=== PATIENT | female | born 1980 | race Caucasian/White ===

== ENCOUNTER 2016-11-10 06:04 | Inpatient (IN) | payer BC, OTHER ==
[~2016-11-10 06:04] MED LIST: Buffered Lidocaine 0.9% SYRIN* 5 ML/SYR SYRINGE INTRADERM ONE; Sodium Citrate/Citric Acid* 15 ML UDC PO ONE
[2016-11-10] MEDS ORDERED: ceFAZolin 2 GM PREMIX (*) 50 ML IVPB ONE (07:03)
[2016-11-10] MEDS ORDERED: Morphine PF AMP (0.5MG/ML)* 5 MG/10 ML AMP ONE (07:35)
[2016-11-10] MEDS ORDERED: Dexamethasone IV* 4 MG/ML 1 ML (4 MG) ONE (07:36)
[2016-11-10] MEDS ORDERED: Ondansetron INJ* 2 MG/ML VIAL ONE (07:36)
[2016-11-10] MEDS ORDERED: OXYTOCIN* 10 UNITS/ML 1 ML VIAL ONE (07:36)
[2016-11-10] MEDS ORDERED: oxyCODONE TAB* 5 MG TAB PO PRN ×2 (07:45→08:36)
[2016-11-10] MEDS ORDERED: Acetaminophen IV 1GM/100ML * 100 ML IVPB ONE (07:45)
[2016-11-10] MEDS ORDERED: PROCHLORPERAZINE INJ 5 MG/ML 2 ML VIAL IV PRN (07:45)
[2016-11-10] MEDS ORDERED: fentaNYL* 50 MCG/ML 2 ML VIAL (100 MCG VIAL) IV PRN (07:45)
[2016-11-10] MEDS ORDERED: Scopolamine 1.5 mg* PATCH TRANSDERM PRN (08:36)
[2016-11-10] MEDS ORDERED: Ondansetron INJ* 2 MG/ML VIAL IV PRN (08:36)
[2016-11-10] MEDS ORDERED: Ketorolac INJ* 30 MG/ML 1 ML VIAL IV PRN (08:36)
[2016-11-10] MEDS ORDERED: Naloxone* 0.4 MG/ML 1 ML VIAL IV PRN (08:36)
[2016-11-10] MEDS ORDERED: Nalbuphine* 20 MG/ML 1 ML VIAL IV PRN (08:36)
[2016-11-10] MEDS ORDERED: Acetaminophen TAB* 325 MG PO SCH (09:00)
[2016-11-10] MEDS ORDERED: Ketorolac INJ* 30 MG/ML 1 ML VIAL IV SCH (09:45)
[2016-11-10] MEDS ORDERED: Dibucaine 1% 28.35 GM TUBE PR PRN (11:55)
[2016-11-10] MEDS ORDERED: Glycerin ADULT SUPP PR PRN (11:55)
[2016-11-10] MEDS ORDERED: Witch Hazel PAD* JAR TOPICAL PRN (11:55)
[2016-11-10] MEDS ORDERED: Acetaminophen TAB* 325 MG PO PRN (11:55)
[2016-11-10] MEDS: Simethicone TAB* 80 MG TAB.CHEW PO SCH ×3 (13:35→20:51)
[2016-11-10] MEDS: Docusate CAP* 100 MG PO SCH ×2 (13:35→20:51)
[2016-11-10] MEDS: Acetaminophen TAB* 325 MG PO SCH (18:17)
--- NOTE | 2016-11-11 01:45 | OP ---
DATE OF PROCEDURE: 11/10/16 - ROOM #116 DATE OF : 84 SURGEON: Kristine Jha MD HOLISTIC NUTRITIONIST: Roseann Brown CNM ANESTHESIOLOGIST: Shad Newell MD ANESTHESIA: Spinal PRE-OP DIAGNOSES: Intrauterine gestation at 39 and 6 weeks' gestational age, prior section, desires permanent sterilization. POST-OP DIAGNOSES: Intrauterine gestation at 39 and 6 weeks' gestational age, prior section, desires permanent sterilization. OPERATIVE PROCEDURE: Low transverse section, bilateral tubal ligation as well. ESTIMATED BLOOD LOSS: 800 mL. FLUIDS: Crystalloid. COMPLICATIONS: None. FINDINGS: Male infant. Weight 8 pounds 5 ounces. Apgars of 9 and 9. Normal- appearing placenta. Normal-appearing uterus, ovaries, and tubes. DESCRIPTION OF PROCEDURE: After informed consent was signed, the patient was taken to the operating room, where she was given spinal anesthesia that was found to be adequate. She was prepped and draped in the dorsal supine position with a leftward tilt. A Pfannenstiel skin incision was made with a scalpel and carried down to the underlying layer of fascia with the scalpel. The fascia was incised on either side of the midline and the fascial incision was extended laterally with sharp dissection with the Hugo scissors. The inferior edge of the fascial incision was grasped with Yosi clamps, tented up, and dissected down with sharp dissection with the Hugo scissors. Then, the superior edge of the fascial incision was also grasped with Yosi clamps, tented up, and dissected down with sharp dissection. The rectus muscles were already in the midline and the peritoneum was then entered bluntly and the peritoneal incision was extended laterally with a combination of sharp and blunt dissection. A bladder blade was then inserted and a transverse incision was made in the lower uterine segment with the scalpel. The incision was extended superiorly and inferiorly with blunt pressure. The infant's head was delivered with fundal pressure followed by the shoulders and the rest of the body. The cord was milked towards the baby, then clamped x2 and cut. The placenta delivered with fundal massage and gentle cord traction and appeared to be intact. The uterus was then exteriorized. The uterine incision was closed with 0 Vicryl in a running locked fashion with the second layer of suture imbricating the first. Attention was then turned to the tubes where the fimbriated end of the right tube was grasped with the Yessi clamp and clamped x2 , it was then suture ligated with 0 plain x2. The clamps removed and the end of the tube was removed with the Metzenbaum scissors. Good hemostasis was noted. Attention was then turned to the left tube, where the same procedure was done. Good hemostasis was noted also on the left side. The abdomen was then irrigated and the uterus was placed back into the abdominal cavity. Then, incision was inspected and good hemostasis was noted. Both tubal sites were also inspected and good hemostasis was noted. The peritoneum was then closed with 3-0 chromic in a running unlocked fashion. The fascia was closed with 0 Vicryl in a running unlocked fashion. The subcuticular layer was irrigated. Good hemostasis was noted and the skin was closed with 4-0 Monocryl in a running subcuticular fashion. The incision was cleaned. Mastisol and Steri- Strips were placed and the dressing was placed. The patient was then moved to the stretcher and taken to the recovery room in stable condition. Sponge, lap, and instrument counts were all correct. [id number]/[facility] #: [id number] MTDD
[2016-11-11] MEDS: Acetaminophen TAB* 325 MG PO SCH ×2 (02:23→11:42)
[2016-11-11 06:51] LABS: Hematocrit 29 % (35-47); Hemoglobin 9.9 g/dl (12.0-16.0); Mean Corpuscular HGB Conc 34 g/dl (31-36); Mean Corpuscular Hemoglobin 30 pg (27-31); Mean Corpuscular Volume 87 fL (80-97); Mean Platelet Volume 9 um3 (7.4-10.4); Red Blood Count 3.36 10^6/ul (4.0-5.4); Red Cell Distribution Width 15 % (10.5-15); White Blood Count 8.8 10^3/ul (3.5-10.8)
[2016-11-11] MEDS: Ibuprofen TAB* 600 MG PO PRN ×3 (07:39→19:58)
[2016-11-11] MEDS: Docusate CAP* 100 MG PO SCH ×3 (07:39→20:01)
[2016-11-11] MEDS: Simethicone TAB* 80 MG TAB.CHEW PO SCH ×4 (07:39→20:01)
[2016-11-11] MEDS: Ferrous Gluconate TAB* 324 MG TAB PO SCH ×2 (08:22→20:01)
[2016-11-11] MEDS: oxyCODONE/Acetamin 5/325 MG* TAB PO PRN ×3 (10:53→22:41)
[2016-11-11] MEDS ORDERED: Zolpidem TAB* 5 MG PO PRN (21:00)
[2016-11-12] MEDS: oxyCODONE/Acetamin 5/325 MG* TAB PO PRN ×5 (06:00→22:07)
[2016-11-12] MEDS: Ibuprofen TAB* 600 MG PO PRN ×3 (06:00→17:49)
[2016-11-12] MEDS: Docusate CAP* 100 MG PO SCH ×3 (08:25→22:06)
[2016-11-12] MEDS: Simethicone TAB* 80 MG TAB.CHEW PO SCH ×4 (08:25→22:06)
[2016-11-12] MEDS: Ferrous Gluconate TAB* 324 MG TAB PO SCH (10:50)
[2016-11-13] MEDS: Ibuprofen TAB* 600 MG PO PRN ×2 (01:46→08:42)
[2016-11-13] MEDS: Ferrous Gluconate TAB* 324 MG TAB PO SCH ×2 (01:47→10:18)
[2016-11-13] MEDS: oxyCODONE/Acetamin 5/325 MG* TAB PO PRN ×2 (03:57→08:42)
[2016-11-13] MEDS ORDERED: Scopolomine PATCH Remove* 1 NOTE MISC PATCH OFF PRN (08:30)
[2016-11-13] MEDS: Docusate CAP* 100 MG PO SCH (08:42)
[2016-11-13] MEDS: Simethicone TAB* 80 MG TAB.CHEW PO SCH (08:42)
[2016-11-13 08:56] VITALS: BP 123/82
== END 2016-11-13 10:24 | disposition home or self-care (01) | DRG 540 ==
LOC: MCHOB 06:04
PROVIDERS: ADMIT Obstetrics & Gynecology; ATTEND Obstetrics & Gynecology
PROC: 0UB70ZZ Excision of Bilateral Fallopian Tubes, Open Approach (ICD-10-PCS; 2016-11-10)
PROC: 10D00Z1 Extraction of Products of Conception, Low, Open Approach (ICD-10-PCS; principal; 2016-11-10 07:45)
DX: O34.211 Maternal care for low transverse scar from previous cesarean delivery (principal); O24.420 Gestational diabetes mellitus in childbirth, diet controlled; D64.9 Anemia, unspecified; O90.81 Anemia of the puerperium; Z3A.39 39 weeks gestation of pregnancy; Z37.0 Single live birth; Z30.2 Encounter for sterilization
CPT/HCPCS: 36415; 85025; 88302; A9270-GY; J0690; J1100; J1885; J2405; J2590

== ENCOUNTER 2017-12-26 10:28 | Emergency (ER) | payer OTHER ==
[2017-12-26 10:35] VITALS: BP 133/97
--- NOTE | 2017-12-26 10:39 | UC ---
Respiratory Complaint HPI - HPI Summary HPI Summary: 37 yo female presents with a fever around 101F for the last 3 days that resolves with ibuprofen. Yesterday she began to have a mild dry cough. She feels mildly fatigued, but no body aches. She is planning to run a half marathon this weekend and is nervous that she will not feel better in time. Denies chills, sinus symptoms, sore throat, SOB, chest pain, abdominal pain, n/v , or dysuria. - History of Current Complaint Chief Complaint: UCRespiratory Stated Complaint: FEVER COUGH Time Seen by Provider: 12/26/17 10:39 Hx Obtained From: Patient Hx Last Menstrual Period: 12/24/17 Onset/Duration: Gradual Onset Timing: Constant Severity Initially: Mild Severity Currently: Mild Pain Intensity: 2 Pain Scale Used: 0-10 Numeric Character: Cough: Nonproductive - Allergies/Home Medications Allergies/Adverse Reactions: Allergies Allergy/AdvReac Type Severity Reaction Status Date / Time No Known Allergies Allergy Verified 12/26/17 10:35 Home Medications: Home Medications Multivit with Iron,Hematinic [[place]] 1 tab PO DAILY 12/26/17 [History Confirmed 12/26/17] PMH/Surg Hx/FS Hx/Imm Hx - Additional Past Medical History Additional PMH: None - Surgical History Surgical History: Yes Surgery Procedure, Year, and Place: breast [id number] 2 csec - Family History Known Family History: Positive: None - Social History Occupation: Employed Full-time Lives: With Family Alcohol Use: None Substance Use Type: None Smoking Status (MU): Never Smoked Tobacco - Immunization History Most Recent Influenza Vaccination: 2016 Most Recent Tetanus Shot: 05/26/14 Most Recent Pneumonia Vaccination: unknown Review of Systems Constitutional: Fever Skin: Negative Eyes: Negative ENT: Negative Respiratory: Cough Cardiovascular: Negative Gastrointestinal: Negative Neurovascular: Negative Neurological: Negative Psychological: Negative All Other Systems Reviewed And Are Negative: Yes Physical Exam - Summary Physical Exam Summary: GENERAL: NAD. WDWN. No pain distress. SKIN: No rashes, sores, lesions, or open wounds. HEENT: Head: AT/NC Eyes: EOM intact. Conjunctiva clear without inflammation or discharge. Ears: Hearing grossly normal. TMs intact, no bulging, erythema, or edema. Nose: Nasal mucosa pink and moist. NTTP maxillary and frontal sinus. Throat: Posterior oropharynx without exudates, erythema, or tonsillar enlargement. Uvula midline. NECK: Supple. Nontender. No lymphadenopathy. CHEST: CTAB. No r/r/w. No accessory muscle use. Breathing comfortably and in no distress. CV: RRR. Without m/r/g. Pulses intact. Cap refill <2seconds NEURO: Alert. PSYCH: Age appropriate behavior. Triage Information Reviewed: Yes Vital Signs: Initial Vital Signs Temp 99.5 F 12/26/17 10:32 Pulse 100 12/26/17 10:32 Resp 20 12/26/17 10:32 BP 133/97 12/26/17 10:32 Pulse Ox 100 12/26/17 10:32 Vital Signs Reviewed: Yes UC Diagnostic Evaluation - Laboratory O2 Sat by Pulse Oximetry: 100 Respiratory Course/Dx - Course Course Of Treatment: Discussed possibility of viral infection and advised to continue with OTC medicine. Pt prefers to be on antibiotics, therefore will rx for amoxicillin and have her f/u if symptoms worsen or persist. - Differential Dx/Diagnosis Provider Diagnoses: Cough. Fever Discharge - Sign-Out/Discharge Documenting (check all that apply): Patient Departure All imaging exams completed and their final reports reviewed: No Studies - Discharge Plan Condition: Stable Disposition: HOME Prescriptions: Amoxicillin PO (*) [Amoxicillin 500 MG CAP*] 500 mg PO Q12H #14 cap Patient Education Materials: Fever in Adults (ED), Acute Bronchitis (ED) Referrals: Ricardo Jeff MD [Primary Care Provider] - Additional Instructions: If you develop a fever, shortness of breath, chest pain, new or worsening symptoms - please call your PCP or go to the ED. Your blood pressure was high at todays visit. Please see your primary provider within 4 weeks for recheck and re-evaluation. - Billing Disposition and Condition Condition: STABLE Disposition: Home
== END 2017-12-26 10:54 | disposition home or self-care (01) ==
LOC: UCEAST 10:28
DX: R05 Cough (principal); R50.9 Fever, unspecified
CPT/HCPCS: 99212; G0463